=== PATIENT | female | born 1985 | race Caucasian/White ===

== ENCOUNTER 2020-10-22 20:19 | Emergency (ER) | payer OTHER ==
[2020-10-22] MEDS ORDERED: BACTRIM DS TAB1 EACH PO (21:06)
== END 2020-10-22 21:17 | disposition home or self-care (01) ==
LOC: FER 20:19
DX: L02.416 Cutaneous abscess of left lower limb (principal); F17.210 Nicotine dependence, cigarettes, uncomplicated; Z88.6 Allergy status to analgesic agent